=== PATIENT | female | born 1990 | race Caucasian/White ===

== ENCOUNTER 2018-10-09 15:16 | Emergency (ER) | payer OTHER ==
[2018-10-09] MEDS ORDERED: NS 0.9% 1000 ML** 1,000 ML IV ONE (15:42)
[2018-10-09 17:03] LABS: ABS Basophils 0 10^3/ul (0-0.2); ABS Eosinophils 0.1 10^3/ul (0-0.6); ABS Lymphocytes 1.8 10^3/ul (1.0-4.8); ABS Monocytes 0.7 10^3/ul (0-0.8); ABS Neutrophils 5.9 10^3/ul (1.5-7.7); ABS Nucleated RBC 0 10^3/ul; Eosinophil % 0.7 %; Hematocrit 42 % (33-41); Hemoglobin 14.2 g/dL (12.0-16.0); Lymphocyte % 20.8 %; Mean Corpuscular HGB Conc 34 g/dL (31-36); Mean Corpuscular Hemoglobin 29 pg (27-31); Mean Corpuscular Volume 84 fL (80-97); Mean Platelet Volume 7.1 fL (7.4-10.4); Nucleated Red Blood Cells % 0; Platelet Count 360 10^3/uL (150-450); Red Blood Count 4.98 10^6 /uL (3.70-4.87); Red Cell Distribution Width 13 % (10.5-15); White Blood Count 8.5 10^3/uL (3.5-10.8)
--- NOTE | 2018-10-09 17:10 | ED ---
HPI Diabetic - History Of Current Complaint Chief Complaint: EDDizziness Time Seen by Provider: 10/09/18 17:00 Hx Obtained From: Patient - Allergies/Home Medications Allergies/Adverse Reactions: Allergies Allergy/AdvReac Type Severity Reaction Status Date / Time No Known Allergies Allergy Verified 10/09/18 15:23 Home Medications: Home Medications NK [No Home Medications Reported] 10/09/18 [History Confirmed 10/09/18] PMH/Surg Hx/FS Hx/Imm Hx Infectious Disease History: No Infectious Disease History: Denies: Traveled Outside the [place] in Last 30 Days - Social History Alcohol Use: None Hx Substance Use: No Substance Use Type: Reports: None Hx Tobacco Use: No Smoking Status (MU): Never Smoked Tobacco Review of Systems Positive: Fatigue Negative: Palpitations Negative: Abdominal Pain, Vomiting, Diarrhea, Nausea Neurological: Other - Lightheadedness Positive: Syncope - near Positive: Anxious All Other Systems Reviewed And Are Negative: Yes Physical Exam Triage Information Reviewed: Yes Vital Signs On Initial Exam: Initial Vitals Temp Pulse Resp BP Pulse Ox 98.9 F 120 16 155/99 98 10/09/18 15:21 10/09/18 15:21 10/09/18 15:21 10/09/18 15:21 10/09/18 15:21 Vital Signs Reviewed: Yes Diagnostics - Vital Signs Vital Signs Temp Pulse Resp BP Pulse Ox 10/09/18 16:26 112 18 162/98 99 10/09/18 15:21 98.9 F 120 16 155/99 98 - Laboratory Lab Results: Lab Results 10/09/18 Range/Units 16:54 WBC 8.5 (3.5-10.8) 10^3/uL RBC 4.98 H (3.70-4.87) 10^6 /uL Hgb 14.2 (12.0-16.0) g/dL Hct 42 H (33-41) % MCV 84 (80-97) fL MCH 29 (27-31) pg MCHC 34 (31-36) g/dL RDW 13 (10.5-15) % Plt Count 360 (150-450) 10^3/uL MPV 7.1 L (7.4-10.4) fL Neut % (Auto) 70.1 % Lymph % (Auto) 20.8 % [place] % (Auto) 8.0 % Eos % (Auto) 0.7 % Baso % (Auto) 0.4 % Absolute Neuts (auto) 5.9 (1.5-7.7) 10^3/ul Absolute Lymphs (auto) 1.8 (1.0-4.8) 10^3/ul Absolute Monos (auto) 0.7 (0-0.8) 10^3/ul Absolute Eos (auto) 0.1 (0-0.6) 10^3/ul Absolute Basos (auto) 0 (0-0.2) 10^3/ul Absolute Nucleated RBC 0 10^3/ul Nucleated RBC % 0 Result Diagrams: 10/09/18 16:54 Lab Statement: Any lab studies that have been ordered have been reviewed, and results considered in the medical decision making process. Discharge - Discharge Plan Referrals: Marli Lambert [Primary Care Provider] - - Attestation Statements Document Initiated by Scribe: Yes Documenting Scribe: Heather Galvez Provider For Whom Scribe is Documenting (Include Credential): Trent Ballard MD Scribe Attestation: Heather Nelson, scribed for Trent Ballard MD on 10/09/18 at 1707.
[2018-10-09 17:19] LABS: BUN/Creatinine Ratio 13.7 (8-20); Calcium 9.3 mg/dL (8.6-10.3); EGFR African American 115.7 (>60); EGFR Non-African American 95.6 (>60); Potassium 3.9 mmol/L (3.5-5.0)
--- NOTE | 2018-10-09 17:25 | ED ---
Syncope/Near Syncope - HPI Summary HPI Summary: Patient is a 28 y/o female who presents to the ED c/o near-syncope. She notes that earlier this week she felt mildly fatigued. Today she was at work and felt lightheaded and dizzy when she stood up. Patient felt near-syncopal and became anxious. Patient denies any palpitations, CP, SOB, CORDERO, abdominal pain, or N/V/ D. She sat down but her symptoms did not resolve, so she went to the school nurse. The nurse noted HTN with a ready of 220/110. Patient now has no symptoms because she is lying flat. LNMP 3 weeks ago. Patient notes that several years ago she had a few high BP readings but they were believed to be due to stress. She denies any hx of anemia. Patient denies smoking. - History Of Current Complaint Chief Complaint: EDDizziness Time Seen by Provider: 10/09/18 17:00 Hx Obtained From: Patient Onset/Duration: Sudden Onset, Resolved Timing: Hours - [employer] Activity At Onset: Other - Standing up Associated Head Trauma: No Aggravating Factor(s): Position Change - standing up Alleviating Factor(s): Nothing Associated Signs And Symptoms: Dizzy, Lightheadedness - Allergies/Home Medications Allergies/Adverse Reactions: Allergies Allergy/AdvReac Type Severity Reaction Status Date / Time No Known Allergies Allergy Verified 10/09/18 15:23 Home Medications: Home Medications NK [No Home Medications Reported] 10/09/18 [History Confirmed 10/09/18] PMH/Surg Hx/FS Hx/Imm Hx Endocrine/Hematology History: Denies: Hx Anemia Cardiovascular History: Reports: Hx Hypertension - several years ago a few readings - no diagnosis Infectious Disease History: No Infectious Disease History: Denies: Traveled Outside the [place] in Last 30 Days - Family History Known Family History: Positive: Hypertension, Diabetes Negative: Other - arhythmia - Social History Alcohol Use: Occasionally Hx Substance Use: No Substance Use Type: Reports: None Hx Tobacco Use: No Smoking Status (MU): Never Smoked Tobacco Review of Systems Positive: Fatigue Negative: Palpitations, Chest Pain Negative: Shortness Of Breath Negative: Abdominal Pain, Vomiting, Diarrhea, Nausea Neurological: Other - Dizziness, lightheadedness Positive: Syncope - near. Negative: Headache Positive: Anxious All Other Systems Reviewed And Are Negative: Yes Physical Exam - Summary Physical Exam Summary: Appearance: Well appearing, no pain distress Skin: warm, dry, reflects adequate perfusion Head/face: normal Eyes: EOMI, ANNA ENT: mucous membranes moist Neck: supple, non-tender Respiratory: CTA, breath sounds present Cardiovascular: RRR, pulses symmetrical Abdomen: non-tender, soft Bowel Sounds: present Musculoskeletal: normal, strength/ROM intact Neuro: normal, sensory motor intact, A&Ox3 Triage Information Reviewed: Yes Vital Signs On Initial Exam: Initial Vitals Temp Pulse Resp BP Pulse Ox 98.9 F 120 16 155/99 98 10/09/18 15:21 10/09/18 15:21 10/09/18 15:21 10/09/18 15:21 10/09/18 15:21 Vital Signs Reviewed: Yes Diagnostics - Vital Signs Vital Signs Temp Pulse Resp BP Pulse Ox 10/09/18 16:26 112 18 162/98 99 10/09/18 15:21 98.9 F 120 16 155/99 98 - Laboratory Lab Results: Lab Results 10/09/18 10/09/18 Range/Units 16:54 16:54 WBC 8.5 (3.5-10.8) 10^3/uL RBC 4.98 H (3.70-4.87) 10^6 /uL Hgb 14.2 (12.0-16.0) g/dL Hct 42 H (33-41) % MCV 84 (80-97) fL MCH 29 (27-31) pg MCHC 34 (31-36) g/dL RDW 13 (10.5-15) % Plt Count 360 (150-450) 10^3/uL MPV 7.1 L (7.4-10.4) fL Neut % (Auto) 70.1 % Lymph % (Auto) 20.8 % [place] % (Auto) 8.0 % Eos % (Auto) 0.7 % Baso % (Auto) 0.4 % Absolute Neuts (auto) 5.9 (1.5-7.7) 10^3/ul Absolute Lymphs (auto) 1.8 (1.0-4.8) 10^3/ul Absolute Monos (auto) 0.7 (0-0.8) 10^3/ul Absolute Eos (auto) 0.1 (0-0.6) 10^3/ul Absolute Basos (auto) 0 (0-0.2) 10^3/ul Absolute Nucleated RBC 0 10^3/ul Nucleated RBC % 0 Sodium 140 (135-145) mmol/L Potassium 3.9 (3.5-5.0) mmol/L Chloride 108 (101-111) mmol/L Carbon Dioxide 25 (22-32) mmol/L Anion Gap 7 (2-11) mmol/L BUN 10 (6-24) mg/dL Creatinine 0.73 (0.51-0.95) mg/dL Est GFR ( Amer) 115.7 (>60) Est GFR (Non-Af Amer) 95.6 (>60) BUN/Creatinine Ratio 13.7 (8-20) Glucose 118 H (70-100) mg/dL Calcium 9.3 (8.6-10.3) mg/dL Beta HCG, Quant Pending Result Diagrams: 10/09/18 16:54 10/09/18 16:54 Lab Statement: Any lab studies that have been ordered have been reviewed, and results considered in the medical decision making process. - EKG 16:19 Cardiac Rate: NL - 95 bpm EKG Rhythm: Sinus Rhythm ST Segment: Normal Summary of EKG Findings: Nl axis, nl intervals Re-Evaluation - Re-Evaluation First Eval Re-Evaluation Time: 17:44 Change: Improved Comment: Pt is able to ambulate without difficulty. Course/Dx Course Of Treatment: Nurse's notes reviewed. 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 Blood pressure has come down significantly without treatment here. She was hydrated and laboratories are all benign. Indices on EKG are normal. She is up and walking with a blood pressure now of 136 systolic. She is currently asymptomatic. Discharged to follow closely primary care physician. - Diagnoses Differential Diagnosis/HQI/PQRI: Positive: Hyperventilation, Hypoglycemia, Hypovolemia, Metabolic Reaction, Medication Reaction, Vasovagal Episode Provider Diagnoses: Near syncope Discharge - Sign-Out/Discharge Documenting (check all that apply): Patient Departure - Discharge Patient Received Moderate/Deep Sedation with Procedure: No - Discharge Plan Condition: Improved Disposition: HOME Patient Education Materials: Near Syncope (ED) Referrals: Marli Lambert [Primary Care Provider] - Additional Instructions: Stay well-hydrated. Return with persistent symptoms, severe headache, vomiting or diarrhea, worse, new symptoms or other concerns. Call your family provider in the morning to schedule prompt follow-up. - Billing Disposition and Condition Condition: IMPROVED Disposition: Home - Attestation Statements Document Initiated by Smitha: Yes Documenting Scribe: Heather Galvez Provider For Whom Smitha is Documenting (Include Credential): Trent Ballard MD Scribe Attestation: Heather Nelson, scribed for Trent Ballard MD on 10/09/18 at 2103. Scribe Documentation Reviewed: Yes Provider Attestation: The documentation as recorded by the Heather goodwin accurately reflects the service I personally performed and the decisions made by , Trent Ballard MD Status of Scribe Document: Viewed
[2018-10-09 17:26] LABS: HCG Pregnancy 0.75 mIU/mL
[2018-10-09 18:07] VITALS: BP 102/59
== END 2018-10-09 18:06 | disposition home or self-care (01) ==
LOC: ED 15:16
DX: R55 Syncope and collapse (principal); R42 Dizziness and giddiness; R53.83 Other fatigue; I10 Essential (primary) hypertension
CPT/HCPCS: 36415; 80048; 84702; 85025; 93005; 96360; 99283